=== PATIENT | male | born 2000 | race Caucasian/White ===

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

== ENCOUNTER 2021-06-09 12:10 | Outpatient (CLI) | payer BC ==
[~2021-06-09] VITALS: Ht 180.3 cm; Wt 83.9 kg
[2021-06-09 12:01] VITALS: BP 121/70
[~2021-06-09 12:10] MED LIST changes: +CEPH-507 PO
[2021-06-09] MEDS ORDERED: EPINEPHrine INJECTION 1 MG/ML AMP IM PRN (12:15)
[2021-06-09] MEDS ORDERED: diphenhydrAMINE 50 MG/ML INJ (BENADRYL) IV PRN (12:15)
[2021-06-09] MEDS ORDERED: ONDANSETRON 4 MG/2 ML (SDV) Z0FRAN IV PRN (12:30)
[2021-06-09] MEDS ORDERED: ACETAMINOPHEN 500 MG TAB (TYLENOL) PO PRN (12:30)
[2021-06-09] MEDS ORDERED: CASIRIVIMAB/IMDEVIMAB 1,200 MG in NS (IVPB) 250 ML IV ONE (12:30)
[2021-06-09 12:32] VITALS: BP 107/71
[2021-06-09 13:19] VITALS: BP 129/64
== END 2021-06-09 14:05 | disposition home or self-care (01) ==
LOC: INFUSION 12:10
PROVIDERS: ATTEND Physician Assistant
DX: Z23 Encounter for immunization (principal); U07.1 COVID-19

== ENCOUNTER → 2023-05-29 | Outpatient (CLI) | payer BC, OTHER ==
[~2023-05-29] MED LIST changes: +GADOTERATE 0.5 MMOL/ML (CLARISCAN) 15 ML VIAL IV ONE; +IOHEXOL 300 MG/ML 50 ML (OMNIPAQUE 300) VIAL IV ONE; +LIDOCAINE 1% INJ 10 ML VIAL INJ ONE; +LIDOCAINE 1% INJ 10 ML VIAL ONE
--- NOTE | 2023-05-29 10:26 | Diagnostic Imaging Report ---
INDICATION: Left shoulder pain. Patient presents for left shoulder injection prior to MRI. Patient brought to the procedure room placed on table in the supine position. The left shoulder was prepped and draped in usual sterile fashion. Small amount of 1% lidocaine was utilized for local anesthesia. 22-gauge needle was advanced into left shoulder at the rotator interval. A 15 mm solution of iodinated contrast, normal saline and gadolinium was injected under fluoroscopic observation. 8 seconds of fluoroscopic time was utilized. 2 images were obtained. Reference air Kerma is 18.4 mGy. IMPRESSION: Successful left shoulder injection of gadolinium contrast solution, using fluoroscopy. Dictated by: Dictated on workstation # [id number]
--- NOTE | 2023-05-29 11:25 | Diagnostic Imaging Report ---
EXAMINATION: Magnetic resonance imaging of the left shoulder following the intra-articular administration of contrast. DATE: May 29, 2023. COMPARISON: Left shoulder arthrogram May 29, 2023. HISTORY: 22-year-old male, left shoulder pain. Lifting injury 3 weeks ago. TECHNIQUE: Magnetic Resonance Imaging sequences were performed of the shoulder following the intra-articular administration of contrast. FINDINGS: ROTATOR CUFF, LIGAMENTS, TENDONS, AND MUSCLES: The supraspinatus, infraspinatus, teres minor, and subscapularis tendons and muscles are intact. There is normal rotator cuff muscle bulk and signal. LONG HEAD OF BICEPS: The biceps labral attachment and long head of the biceps tendon are intact. The long head of the biceps tendon is normally positioned within the bicipital groove. GLENOHUMERAL JOINT: The humeral head is well positioned relative to the glenoid. There is a tear involving the anterior labrum extending from at least the 2 o'clock position of the mid to superior anterior labrum to involve the more inferior aspect of the anterior labrum extending near the 6 o'clock position of the inferior labrum. There is some displacement of the torn anterior labrum. There is no identified paralabral cyst. The articular cartilage is grossly intact. There is no identified intra-articular body or prominent synovitis. The inferior glenohumeral ligament complex is intact. ACROMIOCLAVICULAR JOINT: The acromioclavicular joint is normally aligned. The coracoclavicular and coracoacromial ligaments are intact. There are no degenerative changes of the acromioclavicular joint. BONE: There is no os acromiale. There is edema-like signal in the superolateral aspect of the humeral head without a notable Hill-Sachs deformity. This likely relates to bone contusion. The additional bone marrow signal is unremarkable. There is no acute fracture. BURSAE AND SOFT TISSUES: The bursae and soft tissue surrounding the shoulder are unremarkable. IMPRESSION: 1. Anterior labral tear extending from at least the 2 o'clock position of the mid to superior anterior labrum to involve the more inferior aspect of the anterior labrum extending to the 6 o'clock position of the inferior labrum. There is displacement of the torn anterior labrum. 2. Bone contusion of the superolateral humeral head without a notable Hill-Sachs deformity. 3. Intact rotator cuff and proximal long head of the biceps tendon. 4. Intact acromioclavicular joint. Dictated by: Dictated on workstation # [id number]
== END ==
LOC: RAD 07:49
PROVIDERS: ATTEND Nurse Practitioner Family
DX: S40.022A Contusion of left upper arm, initial encounter (principal); S46.812A Strain of other muscles, fascia and tendons at shoulder and upper arm level, left arm, initial encounter; J45.909 Unspecified asthma, uncomplicated; F32.9 Major depressive disorder, single episode, unspecified; X58.XXXA Exposure to other specified factors, initial encounter
CPT/HCPCS: 23350; 73040; 73222